=== PATIENT | female | born 1975 | race American Indian/Alaskan Native ===

== ENCOUNTER 2017-04-06 06:07 | Day surgery (SDC) | payer OTHER ==
[2017-03-30 09:39] VITALS: BMI 40.7
[2017-04-06] MEDS ORDERED: Bupivacaine 0.5% Inj(30mL) ONE (07:35)
[2017-04-06] MEDS ORDERED: Lidocaine 1% Inj (20ml) ONE (07:35)
[2017-04-06] MEDS ORDERED: Dexamethasone 4 mg/1 ml ONE (07:35)
[2017-04-06] MEDS ORDERED: Lactated Ringer's 1,000 ML IV ONE (07:45)
[2017-04-06] MEDS ORDERED: ceFAZolin IV 2 gm in Dextrose 1 GM/50 ML BAG IVPB ONE (07:47)
[2017-04-06] MEDS ORDERED: Propofol 10 mg/ml Inj (20 ML) ONE (07:49)
[2017-04-06] MEDS ORDERED: Midazolam 2 MG/2 ML VIAL ONE (07:49)
[2017-04-06] MEDS ORDERED: DiphenhydrAMINE 50 mg/ml Inj ONE (07:51)
[2017-04-06] MEDS ORDERED: HYDROmorphone 0.5 mg/0.5 ml ISec IVP PRN ×2 (09:48→09:59)
--- NOTE | 2017-04-06 09:51 | PCM.SURG1 ---
Surgeon's Initial Post Op Note - Surgeon's Notes Surgeon: Dr. Ernst Analyst Food And Beverage: Dr. Mayorga Type of Anesthesia: IV Sedation, Local Pre-Operative Diagnosis: Left foot hallux and 2nd digit hammertoe deformities Operative Findings: see dictation. M: Synthes 3.5mm cannulated PT screw; 0.045 K-wire. I: 20ml 1:1 1% lidocaine plain, 0.5% marcaine plain; 10ml 0.5% marcaine plain. Post-Operative Diagnosis: left foot hallux and 2nd digit hammertoe deformities Operation Performed: Left foot hallux IPJ arhtrodesis, 2nd digit PIPJ arthroplasty Specimen/Specimens Removed: none Estimated Blood Loss: EBL {In ML}: 5 Blood Products Given: N/A Drains Used: No Drains Post-Op Condition: Good Date of Surgery/Procedure: 04/06/17 Time of Surgery/Procedure: 09:54
[2017-04-06 12:08] VITALS: BP 115/67; PULSE 55; RESP 18; TEMP 97; O2SAT 100
--- NOTE | 2017-04-07 09:46 | RAD ---
PROCEDURE: Right Foot Radiographs. HISTORY: s/p right foot surgery COMPARISON: 03/08/2017 FINDINGS: BONES: The previously referenced rounded lucency in the medial proximal 5th phalanx is not appreciated on this exam There is 2nd proximal phalangeal osteotomy with interval pin placement. This interval screw in the 1st interphalangeal joint The well corticated os tibial externum bordering the medial navicular bone is unchanged. There is dorsal talonavicular mild osseous hypertrophy Norris appearing Old posttraumatic changes (healed old fracture of the distal fibula) any tibiotalar arthroplasty hardware is noted Posterior calcaneal spurring - blending Achilles tendon insertional enthesophyte. A sclerotic lucency of the posterior inferior calcaneus is similar in appearance There is ill definition to the pre Achilles fat pad and a amorphous thickening of the expected Achilles tendon soft tissue depiction this appearance is not significantly changed JOINTS: As above SOFT TISSUES: Overlying bandaging OTHER FINDINGS: None. IMPRESSION: Interval postop changes regarding the toes - chronic/remote ankle/hindfoot changes as above
--- NOTE | 2017-04-07 12:36 | OP ---
PROCEDURE DATE: 04/06/2017 PREOPERATIVE DIAGNOSES: 1. Left foot hallux malleus deformity. 2. Left foot second digit hammertoe deformity. POSTOPERATIVE DIAGNOSES: 1. Left foot hallux malleus deformity. 2. Left foot second digit hammertoe deformity. PROCEDURES PERFORMED: 1. Left foot hallux interphalangeal joint arthrodesis with internal fixation. 2. Left foot second digit proximal interphalangeal joint arthroplasty with K-wire fixation. SURGEON: Dr. Mahi Ernst. CREATIVE SERVICES SPECIALIST: Dr. Rohit Mayorga. ANESTHESIA: IV sedation and local injection. INDICATIONS: This patient is a 42-year-old female with the aforementioned diagnoses. The patient is being treated by Dr. Ernst in the [facility] where she has exhausted multiple forms of conservat ami treatment options. The patient seeks surgical intervention at this time. All alternatives, bene fits, complications and risks of surgical procedure were explained to the patient at length. The pat ient verbalizes understanding and wished to proceed. All questions were addressed and answered. No guarantees were given or implied. The consent was signed and n.p.o. status was confirmed prior to br inging the patient into the operating room. OPERATIVE PROCEDURE: The patient was brought into the operating room and placed on the operating rashmi m table in supine position. A pneumatic ankle tourniquet was applied to the supramalleolar region on the left ankle. After induction of IV sedation, a local injection consisting of 20 mL of a 1:1 mixt ure of 1% lidocaine and 0.5% Marcaine was administered in a local block fashion to the left foot. Af ter local anesthesia was achieved, the foot was then prepped and draped in a normal sterile manner an d the procedure began. PROCEDURE #1: Left foot hallux interphalangeal joint arthrodesis with internal fixation. Attention was directed to the dorsal aspect of the left foot hallux interphalangeal joint where an S-shaped inc ision was made with a 15 blade. The incision was deepened through the superficial and subcutaneous t issues utilizing sharp and blunt dissection. Care was taken to retract all vital neurovascular struc tures throughout the duration of the procedure. Attention was then directed to the dorsal aspect of the interphalangeal joint where a transverse tenotomy and capsulotomy was made with a 15 blade. The 15 blade was then utilized to release the medial and lateral collateral ligaments from the head of th e hallux, proximal phalanx. The extensor hallucis longus tendon was then reflected from the dorsal a spect of the head of the proximal phalanx of the hallux and clamped with a hemostat. A 15 blade was then again utilized to free the periosteal structures from the dorsal aspect of the base of the dista l phalanx to the proximal of the hallux with the base of the distal phalanx and head of the pro ximal phalanx of the hallux now adequately exposed. A sagittal saw was used to resect the articular cartilage from both portions. The resected portions of the bone was passed from the surgical field t o the backtable. At this time, it was noted that the subchondral plate and articular cartilage had b een adequately resected down to healthy bleeding bone. Next, utilizing a guidewire from the Synthes 3.5 mm cannulated screw set, the wire was drilled in a retrograde fashion to create a guide hole in t he proximal phalanx of the hallux. The guidewire was then drilled in an antegrade fashion through th e distal phalanx, exiting the distal tip of the hallux. The hallux was then held in a correct positi on and the guidewire was again drilled into the guide hole previously created in the proximal phalanx , ensuring to not penetrate through the first metatarsophalangeal joint. At this time, it was noted using intraoperative fluoroscopy that the guidewire was in the correct position and the hallux was he ld in a corrected position. Next, utilizing the drill for the 3.5 mm cannulated screw, the distal an d proximal phalanx was drilled utilizing intraoperative fluoroscopy. Next, a 30 mm x 3.5 mm Synthes cannulated partially threaded screw was inserted over the guidewire and tightened to finger tightness utilizing standard AO technique. Intraoperative fluoroscopy was then again utilized and it was note d that the screw was in the appropriate position with the threads fully across the arthrodesis site a nd not penetrating into the metatarsophalangeal joint. The temporary guidewire was then removed and the surgical area was flushed with copious amounts of sterile normal saline. A 3-0 Vicryl suture was then utilized to reapproximate the extensor hallucis longus tendon. The subcutaneous tissues were t hen reapproximated utilizing 4-0 Vicryl suture. The skin was then reapproximated utilizing 4-0 Prole ne suture. PROCEDURE #2: Left foot second digit proximal interphalangeal joint arthroplasty with K-wire fixatio n. Attention was directed to the dorsal aspect of the left foot, second digit proximal interphalange al joint where a linear longitudinal incision was made utilizing a 15 blade. The incision was deep i nto the superficial and subcutaneous tissue utilizing sharp and blunt dissection. Care was taken to retract all vital neurovascular structures throughout the duration of the procedure. Attention was t hen directed to the dorsal aspect of the proximal interphalangeal joint where a transverse tenotomy a nd capsulotomy was made utilizing a 15 blade. The 15 blade was then again utilized to free the media l and lateral collateral ligaments from the head of the proximal phalanx. The long extensor tendon w as then freed from the dorsal aspect of the head of the proximal phalanx and clamped with the hemosta t. With the head of the proximal phalanx now adequately exposed, a sagittal saw was used to resect t he most distal portion. The resected portion of bone was passed from the surgical field to the back table. At this time, a 0.04 K-wire was drilled in a retrograde fashion into the proximal phalanx to create a guide hole. The same K-wire was then drilled in an anterograde fashion through the intermed iate and distal phalanx, exiting the distal tip of the second digit. Next, the second digit was held in a corrected position and the K-wire was again drilled in a retrograde fashion back into the guide hole previously created in the proximal phalanx. Intraoperative fluoroscopy was utilized to ensure that the K-wire did not penetrate the metatarsophalangeal joint. At this time, it was noted that the second digit deformity was adequately corrected and the surgical area was flushed with copious amoun ts of sterile normal saline. A 3-0 Vicryl suture was then utilized to reapproximate the long extenso r tendon. The skin was then reapproximated utilizing 4-0 Prolene suture. The K-wire was then bent a nd cut, the appropriate size cap was placed. Intraoperative injections consisted of 10 mL of 0.5% Ma rcaine plain. Postoperative bandages consisted of saline soaked gauze, DSD, Analilia and Elastoplast. POSTOPERATIVE CONDITION: The patient tolerated the procedure and anesthesia well with no apparent co mplications or complaints. The patient was escorted from the OR to the recovery room with vital sign s stable and neurovascular status intact. The patient will follow up with Dr. Ernst in the [facility] on an outpatient basis. Rohit Mayorga DPM Mahi Ernst DPM cc: [id number] TT: 04/07/2017 12:35:01 rn
== END 2017-04-06 12:24 | disposition home or self-care (01) ==
LOC: C.SDS 06:07
PROVIDERS: ATTEND Podiatrist Foot & Ankle Surgery
DX: M20.42 Other hammer toe(s) (acquired), left foot (principal)
CPT/HCPCS: 28285; 73620; 82948; C1713; J0690; J1170; J1200; J2250; J2405; J2704; J2930; J3010; J7120

== ENCOUNTER 2017-05-03 11:49 | Day surgery (SDC) | payer MEDICARE, OTHER ==
[2017-04-17 14:22] VITALS: BMI 40.7
[2017-05-03] MEDS ORDERED: Bupivacaine HCl 0.5% PF (10 ml) Inj ONE (13:23)
[2017-05-03] MEDS ORDERED: Lidocaine 1% Inj (20ml) ONE (13:23)
[2017-05-03] MEDS ORDERED: Propofol 10 mg/ml Inj (20 ML) ONE (13:33)
[2017-05-03] MEDS ORDERED: Midazolam 2 MG/2 ML VIAL ONE ×2 (13:33→14:22)
[2017-05-03] MEDS ORDERED: Lactated Ringer's 1,000 ML IV ONE ×2 (13:40→16:25)
[2017-05-03] MEDS: ceFAZolin IV 1 gm in Dextrose 1 GM/50 ML BAG IVPB ONE ×2 (13:45→14:18)
--- NOTE | 2017-05-03 14:58 | PCM.SURG1 ---
Surgeon's Initial Post Op Note - Surgeon's Notes Surgeon: Dr. Mahi Ernst Diagnostic Technician: Dr. Suárez PGY-2, Dr. Sofia PGY-1 Type of Anesthesia: IV Sedation, Local Anesthesia Administered By: Dr. Sage/ Mike Pre-Operative Diagnosis: left foot painful hardware Operative Findings: see dictation. 20mL 1% lidocaine plain, 0.5%marcaine plain. 10mL 0.5%marcaine plain. 3-0 nylon. 4.0 34mm partially threaded synthes screw Post-Operative Diagnosis: same Operation Performed: left foot revisional IPJ fusion of hallux with internal fixation Specimen/Specimens Removed: screw Estimated Blood Loss: EBL {In ML}: 2 Blood Products Given: N/A Drains Used: No Drains Post-Op Condition: Good Date of Surgery/Procedure: 05/03/17 Time of Surgery/Procedure: 14:00
[2017-05-03] MEDS ORDERED: Oxycodone/Acetaminophen 5/325 mg Tab PO PRN ×2 (14:59)
[2017-05-03] MEDS ORDERED: HYDROmorphone 1 mg/ml ISec ONE (15:15)
[2017-05-03] MEDS ORDERED: Lactated Ringer's 1,000 ML IV SCH (15:15)
[2017-05-03] MEDS: HYDROmorphone 0.5 mg/0.5 ml ISec IVP PRN ×2 (15:17→15:30)
--- NOTE | 2017-05-03 16:01 | RAD ---
PROCEDURE: Left Foot Radiographs. HISTORY: s/p left foot surgery COMPARISON: 04/06/2017 FINDINGS: BONES: No acute fracture. Arthrodesis at 1st interphalangeal joint. Compression screw traverses the 1st interphalangeal joint. Pin through 2nd digit has been removed. JOINTS: Status post tibiotalar arthroplasty SOFT TISSUES: Normal. OTHER FINDINGS: None. IMPRESSION: No acute fracture. Second digit pain removed. First interphalangeal arthrodesis.
[2017-05-03 16:35] VITALS: RESP 18; TEMP 97.8; O2SAT 100
[2017-05-03 17:13] VITALS: BP 148/68; PULSE 62
--- NOTE | 2017-05-04 22:17 | OP ---
PROCEDURE DATE: 05/03/2017 PREOPERATIVE DIAGNOSIS: Left foot painful hardware. POSTOPERATIVE DIAGNOSIS: Left foot painful hardware. PROCEDURE: Left foot revision of hallux, interphalangeal joint fusion with internal fixation. SURGEON: Mahi Ernst DPM ASSISTANTS: 1. Marbella Suárez DPM, PGY2 2. Archie Sofia DPM, PGY1. TYPE OF ANESTHESIA: IV sedation with local. ANESTHESIA ADMINISTERED BY: Dr. Sage, . INDICATIONS: The patient is a 42-year-old female with the above diagnosis. The patient has exhausted all conservative treatment at this time and I requested surgical intervention. The patient's family concern aftercare for coordination of risks, benefits, complications, and alternatives for surgical procedure. No guarantee were given nor implied. PREPARATION: The patient was brought into the operating room and placed on the operating room table in a supine position. A time-out was performed for identification of the correct patient and procedure. After induction of IV sedation, the patient received a total of 20 mL of 1:1 mixture of 2% lidocaine plain and 0.5 % Marcaine plain in the local block type fashion to the left foot. Once local anesthesia was achieved, the left leg was then prepped and draped in normal sterile manner and the procedure began. DESCRIPTION OF PROCEDURE: Under fluoroscopy, the placement of the IV disk screw is noted and Marcaine was hallux. Using a #15-blade a 2 cm linear incision was placed at the distal aspect of the left hallux. The incision site was then deepened through subcutaneous tissue down her bone carefully avoiding all neurovascular structures. All bleeders were cauterized and the screw was then visualized. Another incision on the dorsum of the hallux was made using a #15-blade to gain better access to remove the screw. Metal screw was then visualized from both angles. The screw was then removed using a screwdriver. Incision site was then flushed with copious amounts of saline. A 5 K-wire was placed on the hallux in the same hole of the screw. Under fluoroscopy, a 4.0 x 35 mm partially threaded Synthes screw was then inserted into the hallux. A reduction of the distal and proximal phalanx was noted to be excellent. The site was then flushed with copious amount of saline. The skin was then closed with 3-0 nylon. Another 10 mL of 0.5% Marcaine was injected around the incision site. 1 mL of bone putty was then used and placed at the incision site as well at the bone site. The hallux was then dressed with Adaptic, gauze, Kerlix, Analilia, and Tonoplast. POSTOPERATIVE CONDITION: The patient tolerated the anesthesia and procedure well and was escorted to recovery room with vital signs stable and neurovascular status intact to the left foot. The patient is to be partial weightbearing to the left heel and Podiatry and Dr. Ernst will follow up with the patient upon discharge. Marbella Suárez DPM
--- NOTE | 2017-05-18 13:07 | RAD ---
PROCEDURE: Intraoperative Fluoroscopy. HISTORY: LT. FOOT HALLUX FINDINGS: Fluoroscopic assistance was provided for left foot 1st digit screw fixation. Please refer to the operative report from
== END 2017-05-03 17:25 | disposition home or self-care (01) ==
LOC: C.SDS 11:49
PROVIDERS: ATTEND Podiatrist Foot & Ankle Surgery
DX: T84.84XA Pain due to internal orthopedic prosthetic devices, implants and grafts, initial encounter (principal); M20.42 Other hammer toe(s) (acquired), left foot
CPT/HCPCS: 20680; 28285; 73620; C1713; J0690; J1170; J2250; J2405; J2704; J3010; J7120

== ENCOUNTER 2018-01-24 06:14 | Day surgery (SDC) | payer OTHER ==
[2017-07-06 20:52] VITALS: BMI 40.7
[2018-01-24 06:39] VITALS: RESP 18
[2018-01-24] MEDS ORDERED: ceFAZolin 1 gm in NS 1 GM/100 ML BAG IVPB ONE (07:42)
[2018-01-24] MEDS ORDERED: Bupivacaine 0.25% Inj(30mL) ONE (07:42)
[2018-01-24] MEDS ORDERED: Midazolam 2 MG/2 ML VIAL ONE (07:46)
[2018-01-24] MEDS ORDERED: Lidocaine Hydrochloride 5 ML INJ ONE (07:46)
[2018-01-24] MEDS ORDERED: Propofol 10 mg/ml Inj (20 ML) ONE ×2 (07:46→09:10)
[2018-01-24] MEDS: HYDROmorphone 0.5 mg/0.5 ml ISec IVP PRN ×2 (09:55→10:29)
[2018-01-24] MEDS ORDERED: HYDROmorphone 0.5 mg/0.5 ml ISec ONE (09:56)
[2018-01-24] MEDS ORDERED: Lactated Ringer's 1,000 ML IV SCH (10:00)
--- NOTE | 2018-01-24 10:07 | PCM.SURG1 ---
Surgeon's Initial Post Op Note - Surgeon's Notes Surgeon: Dr. Klever DPM Foundry Laborer Coreroom: Ada Mccormick DPM PGY-2 Type of Anesthesia: MAC, Local Anesthesia Administered By: Dr. Schmidt Pre-Operative Diagnosis: painful retained hardware and pseudoarthrosis of right hallux IPJ Operative Findings: see operative report Post-Operative Diagnosis: same Operation Performed: removal of painful retained hardware, application of bone graft right hallux IPJ Specimen/Specimens Removed: none Estimated Blood Loss: EBL {In ML}: 1 Blood Products Given: N/A Drains Used: No Drains Post-Op Condition: Good Date of Surgery/Procedure: 01/24/18 Time of Surgery/Procedure: 08:30
[2018-01-24 11:12] VITALS: BP 135/84; PULSE 66; TEMP 97; O2SAT 100
--- NOTE | 2018-01-30 03:05 | OP ---
PROCEDURE DATE: 01/24/2018 PREOPERATIVE DIAGNOSIS: Nonunion of hallux interphalangeal joint, left foot. POSTOPERATIVE DIAGNOSIS: Nonunion of hallux interphalangeal joint, left foot. PROCEDURES PERFORMED: 1. Removal of painful retained hardware from hallux interphalangeal joint, left foot. 2. Bone graft application to left hallux interphalangeal joint. SURGEON: Mahi Ernst DPM BOTTOM CRANE OPERATOR: Dai Mccormick DPM, PGY-2 ANESTHESIOLOGIST: Dr. Mroa. ANESTHESIA: MAC IV sedation with a local injection. INDICATIONS: The patient is a 42-year-old female with the above-mentioned diagnosis. The patient has been treated by Dr. Ernst in her office on an outpatient basis where she has exhausted multiple forms of conservative treatment options as well as surgical options including two prior surgeries with attempt at arthrodesis of the left hallux interphalangeal joint, which have failed thus far. The patient seeks surgical intervention at this time. All risks, benefits, and possible complications for the proposed procedure have been explained to the patient at length. The patient verbalizes understanding and wishes to proceed. All questions were answered. No guarantees were given nor implied. Consent was signed and n.p.o. was confirmed prior to taking the patient into the operating room. DESCRIPTION OF PROCEDURE: The patient was brought into the operating room, placed on the operating room table in supine position. A well-padded pneumatic ankle tourniquet was applied in a supramalleolar position to the patient's left ankle. Once IV sedation was achieved, a local injection consisting of 21 mL of a 1:1 mixture consisting of 0.5% Marcaine plain with 2% lidocaine plain was introduced in a local block fashion to the patient's left hallux. Once local anesthesia was achieved, the foot was then prepped and draped in the usual sterile manner and the procedure was begun. PROCEDURE #1: Removal of painful retained hardware, left hallux: Attention was then brought to the distal tip of the patient's left hallux. A stab incision was made overlying the distal tip of the left hallux utilizing a #15 blade. The incision was carried down deep, taking care to carefully retract all other neurovascular structures. All bleeders were cauterized and ligated as necessary. Using a hemostat, the incision was carried down deep to the level of bone of the distal phalanx of the hallux. A periosteal elevator was next utilized to free all soft tissue away from the distal tip of the distal hallux. Next, utilizing intraoperative imaging to confirm the screw location, a small bone rongeur was utilized to excise the bony overgrowth of the head of the screw. Using the hemostat, all soft tissues were then removed from the screw head. When the screw head was visualized, a screw dairy truck driver was used to retrieve the screw from the toe, which was then passed from the operative field. The surgical site was then flushed with copious amounts of sterile saline solution. Next, 0.5 mL of demineralized bone matrix was then inserted into the screw . The deep subcutaneous tissues were reapproximated using 3-0 Vicryl and the skin edges were reapproximated using 4-0 nylon suture. PROCEDURE #2: Implantation of bone matrix to the hallux interphalangeal joint, left foot: Next, a fresh 15 blade was utilized to make a lazy F type incision over the dorsal aspect of the patient's left hallux with the central arm of the incision directed over the hallux IPJ. Care was taken to avoid all other neurovascular structures and also care was taken to avoid injuring the nail matrix. A freer elevator was utilized to further visualize the hallux IPJ. Next, using intraoperative imaging, an attempt was made to put the hallux IPJ through motion and it did appear as if the central portion of the joint was used at this time; however, there did appear to be periarticular areas of nonunion. Next, using a 0.045 K-wire, the medial and lateral aspects of the hallux IPJ was drilled in a retrograde fashion in order to simulate arthrodesis of the joint. At this time, 0.5 mL was then packed into the hallux IPJ. The surgical site was flushed. The subcutaneous tissues were reapproximated using 3-0 Vicryl. Skin edges were reapproximated using 4-0 nylon. Postoperative bandages included Betadine soaked Adaptic, 4x4, gauze, Analilia and Jesse bandage. POSTOPERATIVE CONDITION: The patient tolerated the procedure and the anesthesia well with no apparent complications or complaints. The patient was transported from the OR to the recovery room with vital signs stable and neurovascular structures intact to the left foot. The patient will be weightbearing as tolerated in surgical shoe and will follow up with Dr. Ernst in the office within one week. Dai Mccormick DPM Mahi Ernst DPM
== END 2018-01-24 12:17 | disposition home or self-care (01) ==
LOC: C.SDS 06:14
PROVIDERS: ATTEND Podiatrist Foot & Ankle Surgery
DX: T84.84XA Pain due to internal orthopedic prosthetic devices, implants and grafts, initial encounter (principal); M96.0 Pseudarthrosis after fusion or arthrodesis
CPT/HCPCS: 28024; 28750; 82948; C1713; J0690; J1170; J2250; J2405; J2704; J3010

== ENCOUNTER 2018-02-21 07:26 | Day surgery (SDC) | payer OTHER ==
[2017-07-06 20:52] VITALS: BMI 40.7
[2018-02-21] MEDS ORDERED: Bupivacaine HCl 0.5% PF (10 ml) Inj IJ ONE (07:40)
[2018-02-21] MEDS ORDERED: Lidocaine 1% PF (5ml) Amp INJ ONE (07:40)
[2018-02-21] MEDS ORDERED: DiphenhydrAMINE 50 mg/ml Inj ONE (09:43)
[2018-02-21] MEDS ORDERED: Propofol 10 mg/ml Inj (20 ML) ONE (10:08)
[2018-02-21] MEDS ORDERED: Midazolam 2 MG/2 ML VIAL ONE (10:08)
[2018-02-21] MEDS ORDERED: ceFAZolin 1 gm in NS 2 GM/200 ML BAG IVPB ONE (10:12)
[2018-02-21] MEDS ORDERED: ePHEDrine 50 mg/ml Inj ONE (10:16)
--- NOTE | 2018-02-21 11:35 | PCM.SURG1 ---
Surgeon's Initial Post Op Note - Surgeon's Notes Surgeon: Dr. Ernst DPM Energy Scheduler: Dr. Moeller DPM PGY-2 Type of Anesthesia: General LMA, Local Anesthesia Administered By: Dr. Delgado Pre-Operative Diagnosis: right foot halluxabductovalgus Operative Findings: see dictation Post-Operative Diagnosis: same Operation Performed: right foot bunionectomy Specimen/Specimens Removed: none Estimated Blood Loss: EBL {In ML}: 2 Blood Products Given: N/A Drains Used: No Drains Post-Op Condition: Good Date of Surgery/Procedure: 02/21/18 Time of Surgery/Procedure: 11:35
[2018-02-21] MEDS ORDERED: Oxycodone/Acetaminophen 5/325 mg Tab PO PRN ×2 (11:36)
[2018-02-21] MEDS ORDERED: HYDROmorphone 0.5 mg/0.5 ml ISec IVP PRN (11:38)
--- NOTE | 2018-02-21 12:23 | RAD ---
PROCEDURE: Right foot 02/21/2018. HISTORY: Status post right foot surgery COMPARISON: Comparison made with prior radiographs of the right foot 02/18/2018 FINDINGS: BONES: Osteotomy distal aspect 1st metatarsal with 2 in situ fixation screws with surrounding soft tissue swelling. . 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 Small posterior calcaneal enthesophyte JOINTS: As above SOFT TISSUES: As above OTHER FINDINGS: None. IMPRESSION: Postoperative changes 1st metatarsal with surrounding soft tissue swelling.
[2018-02-21] MEDS ORDERED: Lactated Ringer's 500 ML IV ONE (12:48)
[2018-02-21 13:34] VITALS: O2SAT 97
[2018-02-21 13:38] VITALS: RESP 16
[2018-02-21] MEDS ORDERED: oxyCODONE 10 mg ER Tab (oxyCONTIN) PO ONE (13:44)
[2018-02-21 14:16] VITALS: PULSE 72
[2018-02-21 15:36] VITALS: BP 127/78; TEMP 97.6
--- NOTE | 2018-02-22 23:28 | OP ---
PROCEDURE DATE: 02/21/2018 PREOPERATIVE DIAGNOSIS: Right foot hallux abductovalgus. POSTOPERATIVE DIAGNOSIS: Right foot hallux abductovalgus. PROCEDURE: Right foot first metatarsal osteotomy. SURGEON: Mahi Ernst DPM [employer] PROGRAMMER: Sandra Moeller DPM ANESTHESIA: LMA with local injection. ANESTHESIOLOGIST: Dr. Delgado. INDICATIONS: The patient is a 42-year-old female with the above-mentioned diagnosis. The patient has been treated by Dr. Enrst in clinic on outpatient basis where she has exhausted multiple forms of conservative treatment, and patient seeks surgical intervention at this time. All risks, benefits, and possible complications of proposed procedure have been explained to the patient at length. The patient verbalized understanding and wishes to proceed. All questions were answered. No guarantees were given nor implied. Consent was signed. N.p.o. status was confirmed prior to bringing the patient to the operating room. DESCRIPTION OF PROCEDURE: The patient was brought into the operating room and placed on the operating room table in a supine position. A well-padded pneumatic ankle tourniquet was applied to the patient's right ankle in a supramalleolar position. After induction of LMA, the patient received a local injection consisting of 20 mL of 1:1 mixture of 1% lidocaine plain and 0.5% Marcaine plain. After local anesthesia was achieved, the right foot was then prepped and draped in the usual sterile manner and the procedure began. PROCEDURE #1: Right foot first metatarsal osteotomy. Attention was directed to the dorsal aspect of the first metatarsal head of the right foot where an approximately 6 cm linear longitudinal incision was made medial and parallel to the tendon of the extensor hallucis longus involving the contour of the deformity. The incision was deepened through the subcutaneous tissue using a combination of sharp and blunt dissection with care being taken to identify and retract all vital neurovascular structures. All bleeders were cauterized and ligated as necessary. At this time, a lateral release was performed. Next, an inverted L-type capsulotomy was performed over the dorsal aspect of the first metatarsophalangeal joint. The periosteum and the capsular structures were then carefully dissected free of the osseous attachments and reflected medially and laterally thus exposing the head of the first metatarsal head into the operative site. Next, utilizing a sagittal saw, the dorsal and medial prominences were resected and passed off the operative fortune. All rough edges were then smoothed down as needed. At this time, attention was redirected to the medial aspect of the metatarsal head and using a 0.045 inch K-wire in the center of the metatarsal head, a [id number]-[id number] V-type osteotomy was created in the metaphyseal region of the bone utilizing the sagittal saw at apex with the deformity pointed distally with arms pointing proximal plantar and proximal dorsally. The dorsal arm was made longer to accommodate for internal fixation. Upon completion of the osteotomy, the capital fragment was distracted and impacted laterally in a more corrected position upon the first metatarsal shaft. At this time, two 0.045-inch K-wires were driven from dorsal to plantar across the osteotomy site to serve as temporary fixation. Following sequential removal and following standard AO principles and technique, two 2.0 x 16 mm Synthes cortical screws were inserted and placed across the osteotomy site. Excellent compression was noted. The remaining K-wires were removed. At this time, attention was directed to the remaining medial shaft, which was then resected with a sagittal saw and all rough edges were then smoothed down. The surgical site was then irrigated with copious amounts of normal sterile saline. The capsular and periosteal tissues were then re-approximated with #2-0 Vicryl. The subcutaneous tissue was then re-approximated with #4-0 Vicryl, and the skin was re-approximated with #4-0 Prolene in a simple suture pattern technique. Postoperative injection consisting of 10 mL of 1:1 mixture of 1% lidocaine plain and 0.5% Marcaine plain was given in a local block fashion to the patient's right foot and 10 mg of dexamethasone was given. Postoperative bandages included saline soaked gauze, 4x4s, Analilia, and lastly Tensoplast. POSTOPERATIVE CONDITION: The patient tolerated the anesthesia and the procedure well with no apparent complications or complaints. The patient was escorted from the operative room to the recovery room with vital signs stable and neurovascular status intact. The patient will follow up with Dr. Ernst on outpatient basis. Sandra Moeller DPM Mahi Ernst DPM [id number]
== END 2018-02-21 15:00 | disposition home or self-care (01) ==
LOC: C.SDS 07:26
PROVIDERS: ATTEND Podiatrist Foot & Ankle Surgery
DX: M20.11 Hallux valgus (acquired), right foot (principal)
CPT/HCPCS: 28296; 73630; C1713; J0690; J1170; J1200; J2001; J2250; J2405; J2704; J2765; J2930; J3010; J7120